=== PATIENT | female | born 1955 | race Caucasian/White ===

== ENCOUNTER → 2017-02-17 | Outpatient (CLI) | payer OTHER ==
[~2017-02-17] MED LIST: ASPI325T17 PO; FLEC100T PO; INDO50CA PO; METO25TA35 PO
== END ==
LOC: CFH 11:56
PROVIDERS: ATTEND Physician Assistant Medical
DX: Z02.9 Encounter for administrative examinations, unspecified (principal)

== ENCOUNTER → 2018-09-17 | Outpatient (CLI) | payer OTHER ==
[~2018-09-17] MED LIST changes: -INDO50CA PO; +INDO50CA5 PO
== END | disposition home or self-care (01) ==
LOC: CVU 15:32
PROVIDERS: ATTEND Internal Medicine Cardiovascular Disease
DX: I65.23 Occlusion and stenosis of bilateral carotid arteries (principal); E78.5 Hyperlipidemia, unspecified; I10 Essential (primary) hypertension
CPT/HCPCS: 93880